=== PATIENT | male | born 1990 | race Caucasian/White ===

== ENCOUNTER 2022-05-26 07:45 | Outpatient (RCR) | payer OTHER, SELFPAY | END 2022-09-08 10:01 | disposition home or self-care (01) | PROVIDERS: PCP Student in an Organized Health Care Education/Training Program; Visit Provider Student in an Organized Health Care Education/Training Program | DX: S46.001A Unspecified injury of muscle(s) and tendon(s) of the rotator cuff of right shoulder, initial encounter (principal); Z02.6 Encounter for examination for insurance purposes; Z51.89 Encounter for other specified aftercare | CPT/HCPCS: 97161 ==